=== PATIENT | male | born 1995 | race Caucasian/White ===

== ENCOUNTER → 2023-06-20 | Outpatient (CLI) | payer OTHER | LOC: PLD 07:46 → LAB SHORT 07:46 | DX: L60.2 Onychogryphosis (principal); B35.1 Tinea unguium | CPT/HCPCS: 88305; 88312 ==

== ENCOUNTER 2024-11-21 14:28 | Emergency (ER) | payer BC, OTHER ==
[~2024-11-21] VITALS: Ht 190.5 cm; Wt 102.1 kg
[2024-11-21 15:12] VITALS: BP 137/85
== END 2024-11-21 16:45 | disposition home or self-care (01) ==
LOC: ER 14:28
DX: F32.A Depression, unspecified (principal)
CPT/HCPCS: 99284